=== PATIENT | female | born 1950 | race American Indian/Alaskan Native ===

== ENCOUNTER 2024-09-06 23:02 | Inpatient (IN) | payer MEDICARE, BC ==
[~2024-09-06] VITALS: Ht 162.6 cm; Wt 73.0 kg
[~2024-09-06 23:02] MED LIST: ASPI81TA52 PO; CARV12.5 PO; ESCI20TA PO; FERR-119 PO; LEVO75CA5 PO; LOSA-415 PO; SIMV-42 PO
[2024-09-07] VITALS (10 sets, daily range): BP systolic 92–158; BP diastolic 50–79; PULSE 69–91; RESP 16–20; TEMP 97.4–97.8; O2SAT 92–97
[2024-09-07 00:03] LABS: BILIRUBIN,URINE NEGATIVE (Neg); CLARITY,URINE CLEAR (Clear); COLOR,URINE YELLOW (Yellow); GLUCOSE, URINE NEGATIVE (Neg); KETONES,URINE NEGATIVE (Neg); LEUKOCYTE ESTERASE ,URINE NEGATIVE (Neg); NITRITES, URINE NEGATIVE (Neg); OCCULT BLOOD,URINE TRACE-INTACT (Neg); PROTEIN,URINE NEGATIVE (Neg)
[2024-09-07 00:07] LABS: BASOPHILS # (AUTO) 0.1 X10'3 (0-0.2); BASOPHILS % (AUTO) 0.9 % (0-1); EOSINOPHILS # (AUTO) 0.2 X10'3 (0-0.9); EOSINOPHILS % (AUTO) 2.9 % (0-6); HEMATOCRIT 38.7 % (35.0-45.0); HEMOGLOBIN 12.3 g/dl (12.0-16.0); LYMPHOCYTES # (AUTO) 1.1 X10'3 (1.1-4.8); LYMPHOCYTES % (AUTO) 16.9 % (21-51); MEAN CORPUSCULAR HEMOGLOBIN 26.3 PG (27.0-31.0); MEAN CORPUSCULAR HGB CONC 31.8 g/dL (33.0-36.5); MEAN CORPUSCULAR VOLUME 82.7 FL (78-98); MEAN PLATELET VOLUME 9.3 FL (7.4-10.4); MONOCYTES # (AUTO) 0.5 X10'3 (0-0.9); MONOCYTES % (AUTO) 8.1 % (2-12); NEUTROPHILS # (AUTO) 4.4 X10'3 (1.8-7.7); NEUTROPHILS % (AUTO) 71.2 % (42-75); PLATELET COUNT 230 X10'3 (140-440); RED BLOOD COUNT 4.68 X10'6 (4.20-5.60); RED CELL DISTRIBUTION WIDTH 22.4 % (11.5-14.5); WHITE BLOOD COUNT 6.2 X10'3 (4.5-11.0)
[2024-09-07 00:10] LABS: SQUAMOUS EPITHELIAL CELL,UR MANY /LPF (FEW); UA COLLECTION TYPE NON-SPECIFIED
[2024-09-07 00:11] LABS: BACTERIA,URINE 2+ /HPF (Neg); MUCUS STRANDS FEW /LPF (Neg); RBC,URINE 0-2 /HPF (0-2); WBC,URINE 0-4 /HPF (0-4)
[2024-09-07 00:29] LABS: ANISOCYTOSIS 2+; ELLIPTOCYTES FEW; PLATELET ESTIMATE NORMAL
[2024-09-07 00:33] LABS: ALANINE AMINOTRANSFERASE 12 U/L (12-78); ALBUMIN 3.3 G/DL (3.4-5.0); ALBUMIN/GLOBULIN RATIO 0.8 (1.1-1.5); ALKALINE PHOSPHATASE 64 IU/L (46-116); ANION GAP 6 (8-16); ASPARTATE AMINO TRANSFERASE 19 U/L (10-37); BILIRUBIN,TOTAL 0.5 MG/DL (0.1-1.0); BLOOD UREA NITROGEN 15 MG/DL (7-18); BUN/CREATININE RATIO 16.1 (10.0-20.0); CALCIUM 9.6 MG/DL (8.5-10.1); CHLORIDE 103 MMOL/L (99-107); CREATININE 0.93 MG/DL (0.40-0.90); GLUCOSE 114 MG/DL (70-104); POTASSIUM 3.7 MMOL/L (3.5-5.1); SODIUM 139 MMOL/L (135-145); TOTAL PROTEIN 7.2 G/DL (6.4-8.2); eCRCL 44 ML/MIN; eGFR 59 ML/MIN
[2024-09-07 00:37] LABS: MAGNESIUM 2.1 MG/DL (1.5-2.4)
[2024-09-07] MEDS ORDERED: magnesium sulf-water 2g/50mL 50 ML IV PRN (05:00)
[2024-09-07] MEDS ORDERED: magnesium hydroxide 30ml (MOM) UD suspension PO PRN (05:00)
[2024-09-07] MEDS ORDERED: HYDROcodone/acetaminophen 5mg/325mg tablet PO PRN (05:00)
[2024-09-07] MEDS ORDERED: potassium Cl 40MEQ/1/2NS 520ml 520 ML IV PRN (05:00)
[2024-09-07] MEDS ORDERED: potassium Cl 20 mEq SR tablet PO PRN ×2 (05:00)
[2024-09-07] MEDS ORDERED: magnesium Cl slow-release 64mg tablet PO PRN (05:00)
[2024-09-07] MEDS ORDERED: acetaminophen 325mg tablet PO PRN (05:00)
[2024-09-07] MEDS ORDERED: mag hydrox/Alum hydrox/simeth 30ml oral suspension PO PRN (05:00)
[2024-09-07] MEDS ORDERED: morphine 2 MG/ML inj. syringe IV PRN (05:00)
[2024-09-07] MEDS ORDERED: magnesium sulf-water 4G/100mL 100 ML IV PRN (05:00)
[2024-09-07] MEDS ORDERED: ondansetron/PF 4mg/2ml inj IV PRN (05:00)
[2024-09-07] MEDS: normal saline 1000ml 1,000 ML IV SCH (05:34)
[2024-09-07] MEDS ORDERED: ipratropium/albuterol 3ml nebule NEB PRN (06:25)
[2024-09-07] MEDS ORDERED: labetalol 20mg/4ml (5mg/ml) syringe IV PRN (06:35)
[2024-09-07] MEDS: K and/or MAG REPLACEMENT MC SCH (08:00)
[2024-09-07] MEDS: docusate sod 100mg capsule PO SCH (08:49)
[2024-09-07] MEDS: carVEDilol 12.5mg tablet PO SCH (08:49)
[2024-09-07] MEDS: ferrous sulfate 325mg tablet PO SCH (08:49)
[2024-09-07] MEDS: levoTHYROXINE 75mcg tablet PO SCH (08:49)
[2024-09-07] MEDS: losartan 25mg tablet PO SCH (08:49)
[2024-09-07] MEDS: ESCITALOPRAM 10 mg tablet 10 MG TABLET PO SCH (08:49)
[2024-09-07] MEDS: simvastatin 20mg tablet PO SCH (19:48)
[2024-09-08] VITALS (13 sets, daily range): BP systolic 102–173; BP diastolic 46–83; PULSE 67–90; RESP 15–18; TEMP 97.1–98.7; O2SAT 91–100
[2024-09-08 07:21] LABS: BASOPHILS # (AUTO) 0.1 X10'3 (0-0.2); BASOPHILS % (AUTO) 1.3 % (0-1); EOSINOPHILS # (AUTO) 0.2 X10'3 (0-0.9); EOSINOPHILS % (AUTO) 5.1 % (0-6); HEMATOCRIT 32.8 % (35.0-45.0); HEMOGLOBIN 10.7 g/dl (12.0-16.0); LYMPHOCYTES # (AUTO) 1.7 X10'3 (1.1-4.8); LYMPHOCYTES % (AUTO) 37.1 % (21-51); MEAN CORPUSCULAR HEMOGLOBIN 27.3 PG (27.0-31.0); MEAN CORPUSCULAR HGB CONC 32.7 g/dL (33.0-36.5); MEAN CORPUSCULAR VOLUME 83.6 FL (78-98); MEAN PLATELET VOLUME 9.1 FL (7.4-10.4); MONOCYTES # (AUTO) 0.5 X10'3 (0-0.9); MONOCYTES % (AUTO) 10.6 % (2-12); NEUTROPHILS # (AUTO) 2.1 X10'3 (1.8-7.7); NEUTROPHILS % (AUTO) 45.9 % (42-75); PLATELET COUNT 197 X10'3 (140-440); RED BLOOD COUNT 3.92 X10'6 (4.20-5.60); RED CELL DISTRIBUTION WIDTH 22.3 % (11.5-14.5); WHITE BLOOD COUNT 4.6 X10'3 (4.5-11.0)
[2024-09-08 07:45] LABS: ANION GAP 10 (8-16); CHLORIDE 108 MMOL/L (99-107); POTASSIUM 3.5 MMOL/L (3.5-5.1); SODIUM 143 MMOL/L (135-145); TOTAL CARBON DIOXIDE 24.7 MMOL/L (24-32)
[2024-09-08 07:56] LABS: ALBUMIN 2.6 G/DL (3.4-5.0); BLOOD UREA NITROGEN 13 MG/DL (7-18); BUN/CREATININE RATIO 16.5 (10.0-20.0); CREATININE 0.79 MG/DL (0.40-0.90); GLUCOSE 94 MG/DL (70-104); eCRCL 52 ML/MIN; eGFR 71 ML/MIN
[2024-09-08] MEDS ORDERED: hydrALAZINE 20mg/ml inj. IV PRN (18:05)
[2024-09-09 06:00] VITALS: BP 150/83; PULSE 79; RESP 16; TEMP 98.8; O2SAT 91
[2024-09-09 07:52] LABS: BASOPHILS # (AUTO) 0.1 X10'3 (0-0.2); BASOPHILS % (AUTO) 1.3 % (0-1); EOSINOPHILS # (AUTO) 0.2 X10'3 (0-0.9); EOSINOPHILS % (AUTO) 5.5 % (0-6); HEMATOCRIT 31.3 % (35.0-45.0); HEMOGLOBIN 10.3 g/dl (12.0-16.0); LYMPHOCYTES # (AUTO) 1.2 X10'3 (1.1-4.8); LYMPHOCYTES % (AUTO) 30.8 % (21-51); MEAN CORPUSCULAR HEMOGLOBIN 27.2 PG (27.0-31.0); MEAN CORPUSCULAR HGB CONC 32.7 g/dL (33.0-36.5); MEAN CORPUSCULAR VOLUME 83.2 FL (78-98); MEAN PLATELET VOLUME 9.3 FL (7.4-10.4); MONOCYTES # (AUTO) 0.4 X10'3 (0-0.9); MONOCYTES % (AUTO) 10.2 % (2-12); NEUTROPHILS % (AUTO) 52.2 % (42-75); PLATELET COUNT 177 X10'3 (140-440); RED BLOOD COUNT 3.77 X10'6 (4.20-5.60); RED CELL DISTRIBUTION WIDTH 21.8 % (11.5-14.5); WHITE BLOOD COUNT 3.9 X10'3 (4.5-11.0)
[2024-09-09 08:00] VITALS: RESP 16; O2SAT 91
[2024-09-09 08:02] LABS: ALBUMIN 2.5 G/DL (3.4-5.0); ANION GAP 4 (8-16); BLOOD UREA NITROGEN 14 MG/DL (7-18); BUN/CREATININE RATIO 17.1 (10.0-20.0); CALCIUM 8.5 MG/DL (8.5-10.1); CHLORIDE 107 MMOL/L (99-107); CREATININE 0.82 MG/DL (0.40-0.90); GLUCOSE 90 MG/DL (70-104); POTASSIUM 3.5 MMOL/L (3.5-5.1); SODIUM 140 MMOL/L (135-145); eCRCL 50 ML/MIN; eGFR 68 ML/MIN
[2024-09-09 10:00] VITALS: BP 110/64; PULSE 64; RESP 12; TEMP 97.7; O2SAT 93
[2024-09-09 10:10] VITALS: BP_SYST 123; BP_SYST 130; BP_SYST 136; BP_DIAS 63; BP_DIAS 65; BP_DIAS 70; PULSE 66; PULSE 76; PULSE 83
[2024-09-09 10:41] VITALS: PULSE 81; RESP 16; O2SAT 91
[2024-09-09] MEDS: LORazepam 1 MG tablet PO ONE (12:56)
[2024-09-09] MEDS ORDERED: HYDR-3965 PO (23:23)
[2024-09-09] MEDS ORDERED: ONDA-243 PO (23:23)
[2024-09-09] MEDS ORDERED: CEPH-585 PO (23:23)
[2024-09-10] MEDS ORDERED: ESCI-8 (14:08)
[2024-09-10] MEDS ORDERED: ERGO125013 PO (14:08)
[2024-09-10] MEDS ORDERED: ASPI-1397 (14:08)
[2024-09-10] MEDS ORDERED: ALBU10.7 (14:08)
[2024-09-10] MEDS ORDERED: CYAN1TAB69 (14:08)
[2024-09-10] MEDS ORDERED: NAPR-1170 PO (14:08)
[2024-09-10] MEDS ORDERED: LOSA25TA41 (14:08)
== END 2024-09-09 16:22 | disposition home health service (06) | DRG 93 ==
LOC: ER 23:02 → ED HOLD 09-07 05:02 → PCU 3S 09-07 07:05 → ORTHO 4S 09-08 15:36
PROVIDERS: ADMIT Internal Medicine Critical Care Medicine; ATTEND Internal Medicine
DX: R26.81 Unsteadiness on feet (principal); F41.9 Anxiety disorder, unspecified; F32.A Depression, unspecified; J45.909 Unspecified asthma, uncomplicated; I25.10 Atherosclerotic heart disease of native coronary artery without angina pectoris; E03.9 Hypothyroidism, unspecified; Z96.653 Presence of artificial knee joint, bilateral; I10 Essential (primary) hypertension; R29.6 Repeated falls; Z79.82 Long term (current) use of aspirin; Z86.73 Personal history of transient ischemic attack (TIA), and cerebral infarction without residual deficits; Z79.899 Other long term (current) drug therapy; I25.2 Old myocardial infarction; Z87.891 Personal history of nicotine dependence; W19.XXXA Unspecified fall, initial encounter
CPT/HCPCS: 36415; 70450; 70551; 71045; 72131; 72190; 80048; 80053; 81001; 81003; 83735; 84145; 84443; 84484; 85008; 85025; 87081; 92508; 92616; 93005; 94760; 97110; 97116; 97161; 97530; 99285; A6258; G0378; J7030